=== PATIENT | male | born 1945 | race Caucasian/White ===

== ENCOUNTER → 2016-05-28 | Day surgery (SDC) | payer MEDICARE ==
[~2016-05-28] MED LIST: Lactated Ringers 1,000 ML IV SCH; Lactated Ringers 1,000 ML ONE; Propofol 200 MG/20 ML SDV IV ONE
[2016-05-28 08:54] VITALS: BP 144/73
--- NOTE | 2016-05-28 11:21 | OR ---
DATE OF OPERATION: 05/28/2016 PREOPERATIVE DIAGNOSIS: SCREENING COLONOSCOPY. POSTOPERATIVE DIAGNOSIS: SCREENING COLONOSCOPY. SURGEON: Sebastian Pretty MD PROCEDURE: FULL-LENGTH COLONOSCOPY. 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 COMPLICATIONS: None. SPECIMEN: None. FINDINGS: 1. Full-length colonoscopy. 2. [id number] sigmoid diverticulosis. RECOMMENDATIONS: Routine colonoscopy per screening guidelines. INDICATIONS: The patient was sent by Ayleen Garcia for a screening colonoscopy. He also does have a family history of colon cancer. DESCRIPTION OF PROCEDURE: The patient was prepped and draped, placed in the left lateral decubitus position. A lubricated Olympus colonoscope was inserted and safely and easily advanced to the cecum. Direct visualization of the ileocecal valve and appendiceal orifice was accomplished. The bowel prep was adequate. Upon withdrawal of the scope throughout the entire length of the colon, I found no signs of any polyps, mass, ulceration, or bleeding sites. No vascular abnormalities or signs of colitis. The patient does have scattered diverticula in the sigmoid area, mild for the most part and severity in few areas that had more moderate disease, but no acute inflammatory changes. The rectal vault was unremarkable. Retroflexion of the scope in the rectum showed no anal lesions. Air was then suctioned. The scope was removed without complication. CASSIDY/KEI /[id number]
== END ==
LOC: CC.SDS 06:55
PROVIDERS: ATTEND Family Medicine
DX: Z12.11 Encounter for screening for malignant neoplasm of colon (principal); K57.30 Diverticulosis of large intestine without perforation or abscess without bleeding; K21.9 Gastro-esophageal reflux disease without esophagitis; J45.909 Unspecified asthma, uncomplicated
CPT/HCPCS: G0121; J7120; 00810; J2704

== ENCOUNTER 2021-10-21 20:30 | Emergency (ER) | payer MEDICARE ==
[2021-10-21 21:02] VITALS: BP 156/77; PULSE 98
[2021-10-21] MEDS: Lidocaine 1% 5 ML VIAL INJECT ONE (22:26)
[2021-10-21] MEDS: Diphtheria,Pertussis(Acell),Tetanus Vaccine 0.5 ML Syringe IM ONE (22:27)
== END 2021-10-21 21:15 | disposition home or self-care (01) ==
LOC: CC.ED 20:30
DX: S01.01XA Laceration without foreign body of scalp, initial encounter (principal); Z23 Encounter for immunization; Z88.1 Allergy status to other antibiotic agents; W20.8XXA Other cause of strike by thrown, projected or falling object, initial encounter; Y92.59 Other trade areas as the place of occurrence of the external cause
CPT/HCPCS: 12002; 90471; 90715; 99282-25; 99283